=== PATIENT | female | born 1950 | race Caucasian/White ===

== ENCOUNTER 2021-02-06 08:01 | Emergency (ER) | payer OTHER ==
[~2021-02-06] VITALS: Ht 165.1 cm; Wt 95.3 kg
[2021-02-06 08:39] LABS: Basophils # (auto) 0.1 10 ^3/uL (0-0.2); Basophils % (auto) 0.7 % (0.0-2.0); Eosinophils # (auto) 0.4 10 ^3/uL (0-0.8); Hematocrit 40.4 % (36.0-46.0); Hemoglobin 13.7 g/dL (12.2-16.2); Lymphocytes % (auto) 22.9 % (10.0-50.0); Mean Corpuscular Hemoglobin 30.9 pg (28.0-32.0); Mean Corpuscular Hgb Conc. 33.9 g/dL (32.0-36.0); Mean Corpuscular Volume 91.2 fL (80.0-100.0); Monocytes # (auto) 0.9 10 ^3/uL (0-1.3); Monocytes % (auto) 10.2 % (0.0-12.0); Neutrophils # (auto) 5.2 10 ^3/uL (1.6-8.6); Neutrophils % (auto) 61.2 % (37.0-80.0); Nucleated Red Blood Cells % 0.1 %; Platelet Count (auto) 285 10^3/uL (140-450); Red Blood Cells 4.44 10^6/uL (4.0-5.20); Red Cell Distribution Width 13.8 % (11.8-14.3); White Blood Cell 8.5 10^3/uL (4.4-10.8)
[2021-02-06 08:45] VITALS: BP 113/90
[2021-02-06 08:57] LABS: Albumin 3.6 g/dL (3.4-5.0); Anion Gap 7 (5-15); Blood Urea Nitrogen 24 mg/dL (7-18); Carbon Dioxide 26 mmol/L (21-32); Chloride 110 mmol/L (98-107); Glucose 103 mg/dL (74-106); Sodium 143 mmol/L (136-145)
[2021-02-06 09:02] LABS: Alanine Aminotransferase 17 U/L (13-56); Alkaline Phosphatase 97 U/L (45-117); Aspartate Aminotransferase 9 U/L (15-37); Bilirubin, Total 0.4 mg/dL (0.2-1.0); GFR African American 80 mL/min; GFR Non-African American 66 mL/min; Total Protein 7.3 g/dL (6.4-8.2)
[2021-02-06 09:37] LABS: Urine Bacteria MOD /hpf (None Seen); Urine Blood Negative /uL (Negative); Urine Hyaline Cast MOD /lpf (0 - 2); Urine Mucus FEW (None Seen); Urine Specific Gravity 1.021 (1.001-1.035); Urine WBC 6 /hpf (0 - 5)
[2021-02-06] MEDS ORDERED: NITROFURANTOIN 100 mg CAP PO ONE (10:00)
== END 2021-02-06 11:02 | disposition home or self-care (01) ==
LOC: ER 08:01
DX: N39.0 Urinary tract infection, site not specified (principal); I10 Essential (primary) hypertension; Z99.0 Dependence on aspirator
CPT/HCPCS: 36415; 71045; 74176; 80053; 81001; 84484; 85025; 93005